=== PATIENT | male | born 1960 | race Two or more races ===

== ENCOUNTER 2024-09-16 04:50 | Emergency (ER) | payer MEDICAID, SELFPAY ==
[2024-09-16 04:51] VITALS: BMI 35.2
--- NOTE | 2024-09-16 04:51 | PD.EDRME ---
Rapid Medical Screening Exam RME Arrival date/time: 09/16/24 04:50 64 year old male present to ED for c/o of shoulder pain for 2 days I have greeted and performed a focused initial assessment of this patient. A comprehensive ED assessment and evaluation of the patient, analysis of all test results, and completion of the medical decision making process will be conducted by additional ED providers. Chief Complaint: Extremity Problem,Nontraumatic Time Seen by Provider: 09/16/24 04:51
--- NOTE | 2024-09-16 04:53 | XR_ITS ---
Examination: Shoulder,right, 3 views Technique: Shoulder AP internal rotation, AP external rotation, Y view shoulder, 3 views Exam date and time :September 16, 2024 at 0506 hrs. Indications: Right shoulder pain beginning 2 days ago. Findings: Moderate narrowing glenohumeral joint Mild calcific tendinitis No fracture or shoulder dislocation Impression: Moderate narrowing glenohumeral joint Mild calcific tendinitis
--- NOTE | 2024-09-16 04:53 | EKG_ITS ---
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
[2024-09-16] MEDS: KETOROLAC INJ 60 MG/2 ML VIAL 30 MG IM (05:03)
[2024-09-16 05:04] VITALS: BP 170/106; PULSE 88; RESP 18; TEMP 36.7; O2SAT 96
[2024-09-16 05:33] LABS: Basophils # (Auto) 0.1 Thou/mm3 (0.0-0.2); Basophils % (Auto) 0 % (0-2.5); Eosinophils # (Auto) 0.5 Thou/mm3 (0.0-0.5); Eosinophils % (Auto) 4 % (0-10); Hematocrit 39.7 % (41.0-53.0); Hemoglobin 12.7 g/dL (13.5-16.0); Immature Granulocytes % (Auto) 1 % (0-0); Immature Granulocytes Auto 0.07 Thou/mm3 (0.00-0.00); Lymphocytes # (Auto) 2.3 Thou/mm3 (1.0-4.8); Lymphocytes % (Auto) 16 % (10-50); Mean Corpuscular Hemoglobin 28.7 pg (25.0-35.0); Mean Corpuscular Volume 90 fL (80-100); Monocytes % (Auto) 7 % (0-12); Neutrophils # (Auto) 10.6 Thou/mm3 (1.8-7.7); Neutrophils % (Auto) 73 % (37-80); Nucleated Red Blood Cell % 0 /100 WBC (0); Platelet Count 209 Thou/mm3 (140-440); RDW Standard Deviation 46.9 fL (35.1-43.9); Red Blood Count 4.42 Miln/mm3 (4.50-5.90); White Blood Count 14.5 Thou/mm3 (3.8-10.6)
[2024-09-16 06:13] LABS: Alanine Aminotransferase 8 U/L (10-49); Albumin, Serum 4.8 gm/dL (3.4-4.8); Albumin/Globulin Ratio 1.7 (1.2-2.2); Alkaline Phosphatase 102 U/L (46-116); Anion Gap 9 (7-16); Aspartate Amino Transferase 16 U/L (0-34); BUN/Creatinine Ratio 15 Ratio (12-20); Bilirubin,Total 0.6 mg/dL (0.3-1.2); Blood Urea Nitrogen 17 mg/dL (9-23); Calcium 9.5 mg/dL (8.3-10.6); Calcium (Corrected) 9.5 mg/dL (8.5-10.1); Carbon Dioxide 25.7 mMol/L (20.0-31.0); Chloride 104 mMol/L (98-107); Creatinine (Component) 1.1 mg/dL (0.6-1.3); Estimated Creatinine Clearance 76.7 mL/min (>60); Globulin 2.9 gm/dL (2.3-3.5); Glucose 116 mg/dL (74-106); Osmolality,Calculated 280 (275-295); Potassium 4.1 mMol/L (3.4-5.1); Sodium 139 mMol/L (136-145); Total Protein 7.7 gm/dL (5.7-8.2); Troponin I < 0.020 ng/mL (0.0-0.045); eGFR > 60 See Note
[2024-09-16 07:46] VITALS: BP 170/96; PULSE 79; RESP 16; TEMP 36.8; O2SAT 97
--- NOTE | 2024-09-16 07:47 | EDNOTE_ITS ---
ED Extremity Problem RME/HPI General Chief complaint: Extremity Problem,Nontraumatic Stated complaint: RIGHT SHOULDER PAIN X2 DAYS Time Seen by Provider: 09/16/24 04:51 Source: patient Arrival date/time: 09/16/24 0600 This is a 64-year-old male Significant past medical history of hypertension, gout, osteoarthritis presented to the emergency department this a.m. with complaints of right shoulder pain x 2 days. Patient reported that he was working out in his yard lifting and pulling weeds 1 week ago and noticed his pain started 2 days ago. Reports pain with range of motion. patient did not attempt any interventions or take any OTC medications prior to ED visit. Patient denies any other associated symptoms or aggravating factors. No modifying factors, no radiation, no migration. Mode of arrival: ambulatory Limitations: no limitations RME / HPI RME / HPI Narrative: 09/16/24 04:50 64 year old male present to ED for c/o of shoulder pain for 2 days I have greeted and performed a focused initial assessment of this patient. A comprehensive ED assessment and evaluation of the patient, analysis of all test results, and completion of the medical decision making process will be conducted by additional ED providers. Related Data Home Medications ?Medication ?Instructions ?Recorded ?Confirmed allopurinol 100 mg tablet 100 mg PO BID 09/04/19 02/17/24 lisinopril 20 mg tablet 20 mg PO QDAY High Blood Pressure 06/11/20 02/17/24 Previous Rx's ?Medication ?Instructions ?Recorded acetaminophen 500 mg tablet 1,000 mg (2 x 500 mg) PO Q6H PRN 01/18/24 (Acetaminophen Extra Strength) pain #90 tabs aspirin 81 mg tablet,delayed 81 mg PO BID #60 tabs 01/18/24 release gabapentin 300 mg capsule 300 mg PO .qhs #30 caps 01/18/24 oxycodone 5 mg tablet 5 mg PO Q6H PRN pain #28 tabs 01/18/24 sennosides 8.6 mg-docusate sodium 1 tab-cap PO QDAY #30 tabs 01/18/24 50 mg tablet (Senna-S) naproxen 500 mg tablet (Naprosyn) 500 mg PO BID PRN pain #20 tabs 09/16/24 Allergies Allergy/AdvReac Type Severity Reaction Status Date / Time No Known Allergies Allergy Verified 08/15/24 23:29 Review of Systems Review of Systems Systems Reviewed: All systems reviewed, normal except as documented Narrative Review of Systems: Gen: No fever, no chills, no weight loss EYES: No discharge, no visual changes, no pain HEENT: No ear pain, no congestion, no sore throat PULM: No shortness of breath, no cough, no congestion CV: No chest pain, no dyspnea on exertion, no palpitations GI: No nausea, no vomiting, no diarrhea, no pain, no constipation : No frequency, no urgency,? no dysuria Musc/skel: right shoulder pain pain, no back pain Skin: No rash? Past Medical History Past Medical History NEUROLOGIC: Negative Neurological Disorders or Seizures CARDIAC: Positive Cardiac Disorders and Hypertension; Negative Congestive Heart Failure RESPIRATORY: Negative Chronic Obstructive Pulmonary Disease (COPD) or Asthma GASTROINTESTINAL: Positive Gastrointestinal Disorders and Obesity; Negative Hepatitis GENITOURINARY: Positive Genitourinary Disorders and Kidney Stones; Negative Renal Disease or Benign Prostatic Hyperplasia MUSCULOSKELETAL: Positive Musculoskeletal Disorders and Gout ENDOCRINE: Negative Endocrine Disorders, Diabetes Mellitus Type 1 or Diabetes Mellitus Type 2 HEMATOLOGIC: Negative Blood Disorders or Sickle Cell Disease OTHER HISTORY: Positive Hospitalization (heat stroke) and Chicken Pox; Negative Autoimmune Disease, Shingles, Blood Transfusions, Blood Transfusion Reaction, Anesthesia Reactions, MRSA or Cancer Family History FAMILY HISTORY: Positive Family Cardiac Disorders; Negative Family Psychiatric Problems, Family Respiratory Disorders, Family Gastrointestinal Problems, Family Cancer, Family Surgery or Family Anesthesia Reaction Surgical History SURGICAL: Negative Cardiac Surgery Social History SMOKING STATUS: Never smoker SECOND HAND EXPOSURE: No SUBSTANCE USE: does not use ED Exam General Limitations: Present no limitations General appearance: Present alert and in no apparent distress Head Head exam: Present atraumatic Eye Eye exam: Present normal appearance, PERRL and EOMI ENT ENT exam: Present normal exam, normal oropharynx and mucous membranes moist Neck Neck exam: Present normal inspection, full ROM and trachea midline Chest Chest inspection: Present normal inspection and symmetric chest wall rise Respiratory Respiratory exam: Present normal lung sounds bilaterally Cardiovascular Cardiovascular exam: Present regular rate, normal rhythm and normal heart sounds Abdominal Exam Abdominal exam: Present soft and normal bowel sounds; Absent distention, tenderness or guarding Extremities Exam Extremities exam: Present normal inspection and normal capillary refill Expanded Upper Extremity Exam Shoulder exam: Present tenderness (rt shoulder pain with ROM) and tenderness over AC joint; Absent swelling or erythema Back Exam Back exam: Present normal inspection and full ROM Neurological Exam Neurological exam: Present alert, oriented X3 and CN II-XII intact Psychiatric Psychiatric exam: Present normal affect and normal mood Skin Skin exam: Present warm, dry, intact and normal color Course Quality Measures none Orders Category Date Time Status EKG (ED ONLY) *Do not use* NOW Care 09/16/24 04:54 Completed EKG (ED Only) Stat Exams 09/16/24 04:53 Draft XR shoulder RT min 2V Stat Exams 09/16/24 04:53 Completed CBC Stat Lab 09/16/24 05:13 Completed CMP [Comprehensive Metabolic Panel] Stat Lab 09/16/24 05:13 Completed Troponin I Stat Lab 09/16/24 05:13 Completed Ketorolac Inj [Toradol Inj] Med 09/16/24 04:53 Discontinued 30 mg IM X1 ONE Vital Signs Vital signs: Vital Signs Temperature 98.1 F 09/16/24 05:04 Pulse Rate 88 09/16/24 05:04 Respiratory Rate 18 09/16/24 05:04 Blood Pressure 170/106 H 09/16/24 05:04 Pulse Oximetry (%) 96 09/16/24 05:04 Oxygen Delivery Method Room Air 09/16/24 05:04 Extremity Problem MDM Narrative MDM Narrative:: this is a 64-year-old male Significant past medical history of hypertension, gout, osteoarthritis presented to the emergency department this a.m. with complaints of right shoulder pain x 2 days. Patient reported that he was working out in his yard lifting and pulling weeds 1 week ago and noticed his pain started 2 days ago. Reports pain with range of motion. Patient initially evaluated by other provider had labs, EKG and troponin which were Reviewed by me. Mild anemia noted consistent with previous labs. Mild leukocytosis however patient does not have any fever, does have a history of taking steroids. Patient only c/o shoulder pain . Shoulder x-ray demonstrated shoulder tendinitis. no acute history of injury. Pain Medications provided. Patient data External records reviewed:: [facility] previous records Clinical information provided by:: patient Social determinants that could affect healthcare access:: none Patient has the following chronic illnesses:: no How is presenting disease/condition affected by chronic disease/condition?: no chronic disease Evaluation data The following diagnostics were reviewed and interpreted by me:: lab results and radiology exam(s) Lab and/or radiology exams considered but not ordered:: no Interpretation Summary: Examination: Shoulder,right, 3 views Technique: Shoulder AP internal rotation, AP external rotation, Y view shoulder, 3 views Exam date and time :September 16, 2024 at 0506 hrs. Indications: Right shoulder pain beginning 2 days ago. Findings: Moderate narrowing glenohumeral joint Mild calcific tendinitis No fracture or shoulder dislocation Impression: Moderate narrowing glenohumeral joint Mild calcific tendinitis Medications / Prescriptions Medications or Prescriptions considered but not ordered:: no Medication administrations:: Medication Administration History Discontinued Medications Ketorolac Tromethamine (Ketorolac Inj 60 Mg/2 Ml Vial) 30 mg IM X1 ONE Stop: 09/16/24 04:54 Last Admin: 09/16/24 05:03 Dose: 30 mg Documented By: PAYAM all medications administered and effective Consultations Consultation(s) initiated? (list below): No Diagnosis Extremity Problem Differential Diagnosis: herpes zoster, cellulitis and other ( osteoarthritis, shoulder tendinitis,) Most likely diagnosis given after review of the tests above:: shoulder tendinitis Admission Indicated Admission indicated?: not indicated Admission Request Was there a request for admission?: No Disposition Plan Disposition Plan: Discharge Discharge Attestation Discharge Attestation: The patient and all family members were given an opportunity to ask questions and understood the discharge instructions. Discharge instructions specifically effects, indications for sooner follow up or return to the emergency department, and the expected course of current diagnosis. Patient condition: Stable Discharge Plan Plan Patient Disposition: HOME (Self Care) Patient condition on transfer: Stable Prescriptions/Referrals Prescriptions/Med Rec: New naproxen [Naprosyn] 500 mg tablet 500 mg PO BID PRN (Reason: pain) Qty: 20 0RF No Action allopurinol 100 mg Tablet 100 mg PO BID lisinopril 20 mg Tablet 20 mg PO QDAY aspirin 81 mg tablet,delayed release (DR/EC) 81 mg PO BID Qty: 60 0RF acetaminophen [Acetaminophen Extra Strength] 500 mg tablet 1,000 mg PO Q6H MDD 1000mg PRN (Reason: pain) Qty: 90 0RF gabapentin 300 mg capsule 300 mg PO .qhs Qty: 30 0RF oxycodone 5 mg tablet 5 mg PO Q6H MDD 20 PRN (Reason: pain) Qty: 28 0RF sennosides-docusate sodium [Senna-S] 8.6-50 mg tablet 1 tab-cap PO QDAY Qty: 30 0RF Referrals: Hema Dhillon PA-C [Primary Care Provider] - In 1 week Problem List Clinical Impression: Right shoulder tendinitis Patient/Caregiver Discharge Instructions Discharge Activity: activity as tolerated Additional Instructions: SHOULDER TENDINITIS-is the inflammation or irritation of the tendons in the shoulder. Tendons are the tissues that connect muscles to bones. When they become overused, strained, or injured, they can swell and cause pain, stiffness, and difficulty moving the shoulder. It?s often caused by repetitive movements (like throwing, lifting, or overhead activities) or from an injury. With rest and proper care, most people recover fully. Rest: Avoid activities that worsen the pain, such as heavy lifting or repetitive movements. Gradually return to normal activities as the pain subsides. Ice Therapy: Apply an ice pack to the affected area for 15?20 minutes every 2?3 hours during the first 48 hours to reduce pain and inflammation. Always use a cloth between the ice pack and your skin. Medication: Take [id number] pain relievers like ibuprofen (Advil) or acetaminophen (Tylenol) as directed to manage pain and reduce inflammation. Gentle Stretching: Begin with light shoulder stretches and [id number] exercises as recommended by your doctor or physical therapist to prevent stiffness. Ergonomic Adjustments: If your tendinitis is related to repetitive tasks, modify your work or daily activities to reduce strain on your shoulder. Follow-Up: Schedule a follow-up appointment with your healthcare provider if symptoms persist or worsen. Print Language: Micronesian Stand Alone Forms: [employer] Award Info., Patient Portal Info Letter Attestation Attestation The patient was seen by the midlevel practitioner. I, the co-signing physician, was present during the entire ER visit. While I did not physically examine the patient, I was available for consultation as needed.
== END 2024-09-16 08:01 | disposition home or self-care (01) ==
PROVIDERS: Physician Assistant; Emergency Provider Emergency Medicine; PCP Physician Assistant
DX: M75.31 Calcific tendinitis of right shoulder (principal); M19.011 Primary osteoarthritis, right shoulder; I10 Essential (primary) hypertension
CPT/HCPCS: 36415; 73030; 80053; 84484; 85025; 93005; 96372; 99283; J1885